=== PATIENT | male | born 2000 | race Caucasian/White ===

== ENCOUNTER 2024-06-07 19:04 | Emergency (ER) | payer OTHER, SELFPAY ==
[2024-06-07 19:17] VITALS: BP 122/84; PULSE 78; RESP 16; TEMP 36; O2SAT 99
--- NOTE | 2024-06-07 19:34 | ED_ITS ---
HPI - General Adult General Chief complaint: Head Injury Stated complaint: Concussion Symptoms Source: patient Mode of arrival: ambulatory Limitations: no limitations History of Present Illness HPI narrative: Patient presents for evaluation of headache since last night. He is working initial on a piece of wood in equipment on stage fell and hit him in the head last night. No loss of consciousness. He is not on blood thinners. No vomiting since the episode. Reports a dull headache since that time. He has had some difficulty with word finding. He had some nausea earlier. Tonight he was at his rehearsal and states one of his friends said that his left pupil seemed more dilated than the right. he states he continues to have dull pain in the left frontal region of his head with some tension in the right parietal region. He came into the [facility] requesting letter to excuse him from school/work/rehearsal. He took OTC tylenol or ibuprofen for his symptoms. Review of Systems Review of Systems: CONSTITUTIONAL: Denies fever, chills, or sweats. EYES: Denies visual changes, redness, or discharge. ENT: Denies rhinorrhea, congestion, sore throat, or otalgia. CARDIOVASCULAR: Denies chest pain, palpitations, or edema. RESPIRATORY: Denies cough or dyspnea. GASTROINTESTINAL: Reports recent nausea, none currently.Denies abdominal pain, vomiting, or diarrhea. GENITOURINARY: Denies dysuria or hematuria. SKIN: Denies rash or itching. MUSCULOSKELETAL: Denies back pain, joint pain, or myalgia. NEUROLOGIC: Reports some difficulty with word-finding, improved. Reports headache. Denies numbness, dizziness, or weakness. PSYCHIATRIC: Denies anxiety or depression. [facility] Past Medical History Medical History Hearing loss Surgical History Surgical History No pertinent past surgical history Family History Family History Mother Family history non-contributory Social History Social History Substance use: current Substance use type: marijuana Living arrangements: with roommate(s) Gender identity (if verbalized by the patient): Male Spiritual care concerns: No Exam Narrative: GENERAL: Well-appearing, well-nourished, and in no acute distress. HEAD: Normocephalic, atraumatic. EYES: PERRLA and EOMI. left pupil 1 mm greater than right. ENT: Nares clear, no rhinorrhea or epistaxis. Mucous membranes moist. Oropharynx without tonsillar hypertrophy exudate or other lesions. Bilateral TMs pearly hernandez nonbulging NECK: Supple. No adenopathy or masses. No carotid bruits or JVD CHEST: Clear to auscultation. No respiratory distress. No wheezes rales or rhonchi HEART: Regular rate and rhythm. No murmur heard. Normal peripheral pulses. ABDOMEN: Soft, nontender, nondistended, normal active bowel sounds. EXTREMITIES: Normal range of motion. No edema. SKIN: Warm, dry, no rash. NEURO: No focal deficits. Alert and oriented x3. PSYCH: Normal mood and affect. Course Course Emergency Course: this is a 23-year-old male who presented to the [facility] requesting a note to excuse him from school/ work/ rehearsal today and tomorrow. He does not meet any criteria for neuroimaging based upon [place] Head CT Guidelines. He is neurologically intact. There is a small difference in the left pupil from the right. This could be his normal anatomy. I did offer to send him to the emergency department for further evaluation despite not meeting criteria for imaging based on [place] Head CT Guidelines. He declined. He would like to be discharged home and will have close observation. In the event that he has worsening symptoms he will go to the emergency department. OTC agents for pain. Pt in agreement with plan of care. Level of Care: [facility] Visit Vital Signs Vital signs: Vital Signs Temperature 36.0 C L 06/07/24 19:17 Pulse Rate 78 06/07/24 19:17 Respiratory Rate 16 06/07/24 19:17 Blood Pressure 122/84 06/07/24 19:17 Pulse Oximetry 99 06/07/24 19:17 Temperature 36.0 C L 06/07/24 19:17 Pulse Rate 78 06/07/24 19:17 Respiratory Rate 16 06/07/24 19:17 Blood Pressure 122/84 06/07/24 19:17 Pulse Oximetry 99 06/07/24 19:17 Medical Decision Making Vital Signs Vital Signs: Vital Signs Temperature 36.0 C L 06/07/24 19:17 Pulse Rate 78 06/07/24 19:17 Respiratory Rate 16 06/07/24 19:17 Blood Pressure 122/84 06/07/24 19:17 Pulse Oximetry 99 06/07/24 19:17 Temperature 36.0 C L 06/07/24 19:17 Pulse Rate 78 06/07/24 19:17 Respiratory Rate 16 06/07/24 19:17 Blood Pressure 122/84 06/07/24 19:17 Pulse Oximetry 99 06/07/24 19:17 Discharge Plan Discharge Clinical Impression: Contusion of head Patient Disposition: Home Condition: Stable Instructions: Antibiotic Form, Contusion in Children (DC) Additional Instructions: IF YOU HAVE WORSENING PAIN, INTRACTABLE VOMITING OR CONFUSION PLEASE GO TO THE ER Patient Language: Ivorian Follow-up/Referrals: Kay Sheriff MD [Physician] - Stand Alone Forms: Work/School Release IP Time of Disposition: 19:32
== END 2024-06-07 19:38 | disposition home or self-care (01) ==
PROVIDERS: Emergency Provider Nurse Practitioner
DX: S00.93XA Contusion of unspecified part of head, initial encounter (principal); W20.8XXA Other cause of strike by thrown, projected or falling object, initial encounter
CPT/HCPCS: 99213; G0463